=== PATIENT | male | born 1955 | race Two or more races ===

== ENCOUNTER 2022-02-18 16:46 | Emergency (ER) | payer OTHER ==
[~2022-02-18] VITALS: Ht 182.9 cm; Wt 81.2 kg
[2022-02-18 17:26] VITALS: BP 113/69
[2022-02-18] MEDS ORDERED: PROM1SOL4 PO (18:09)
[2022-02-18] MEDS ORDERED: AMOX-277 PO (18:09)
== END 2022-02-18 18:25 | disposition home or self-care (01) ==
LOC: ER 16:46
DX: J20.9 Acute bronchitis, unspecified (principal); H66.93 Otitis media, unspecified, bilateral
CPT/HCPCS: 71046

== ENCOUNTER 2022-05-13 07:50 | Emergency (ER) | payer OTHER ==
[~2022-05-13] VITALS: Ht 185.4 cm; Wt 92.6 kg
[~2022-05-13 07:50] MED LIST: AMOX-277 PO; PROM1SOL4 PO
[2022-05-13 08:36] VITALS: BP 117/72
[2022-05-13] MEDS ORDERED: AMOX-277 PO (09:21)
[2022-05-13] MEDS ORDERED: IBUP800T26 PO (09:21)
== END 2022-05-13 09:38 | disposition home or self-care (01) ==
LOC: ER 07:50
DX: H66.92 Otitis media, unspecified, left ear (principal); Z88.0 Allergy status to penicillin